=== PATIENT | male | born 1945 | race Caucasian/White ===

== ENCOUNTER 2023-03-24 00:45 | Inpatient (IN) | payer BC, MEDICARE ==
[2023-03-24 03:10] VITALS: BMI 32.2
[2023-03-24] MEDS ORDERED: Acetaminophen 325 MG TAB PO PRN (03:28)
[2023-03-24] MEDS ORDERED: Nitroglycerin 0.4 MG TAB (25 Tab Bottle) SL PRN (03:30)
[2023-03-24 03:53] LABS: #Eosinphils 0.1 thou/uL (0.0-0.7); #Neutrophils 6.2 thou/uL (1.40-6.50); %Basophils 0.4 % (0.0-1.0); %Eosinophils 0.7 % (0.0-10.0); %Lymphocytes 14.7 % (21.0-51.0); %Monocytes 11.2 % (0.0-10.0); %Neutrophils 72.6 % (42.0-75.0); Hematocrit 36.6 % (42.0-52.0); Mean Corpuscular HGB CONC 32.8 g/dL (32.0-36.0); Mean Corpuscular Hemoglobin 32.7 pg (27.0-31.0); Mean Corpuscular Volume 99.7 fl (78.0-98.0); Mean Platelet Volume 10.2 fL (7.4-10.4); Platelet Count 161 10x3/uL (130-400); RBC Distribution Width 13.4 % (11.5-14.5); Red Blood Cell (RBC) Count 3.67 mill/uL (4.70-6.10); White Blood Cell (WBC) Count 8.5 10x3/uL (4.8-10.8)
[2023-03-24 04:05] LABS: Lactic Acid 1.3 mmol/L (0.5-2.2)
[2023-03-24 04:11] LABS: ALT (SGPT) 21 U/L (8-55); AST (SGOT) 29 U/L (5-34); Albumin 3.8 g/dL (3.4-4.8); Alkaline Phosphatase 65 U/L (40-110); Anion Gap 12 mmol/L (10-20); BUN (Urea Nitrogen) 17 mg/dL (8.4-25.7); Bilirubin, Total 1.1 mg/dL (0.2-1.2); Calc. Creatinine Clearance 97 mL/min (70-130); Calcium 8.5 mg/dL (7.8-10.44); Carbon Dioxide 20 mmol/L (23-31); Chloride 109 mmol/L (98-107); Estimated GFR 78; Globulin 2.2 g/dL (2.4-3.5); Glucose 92 mg/dL (83-110); Phosphorus 3.4 mg/dL (2.3-4.7); Potassium 4.1 mmol/L (3.5-5.1); Sodium 137 mmol/L (136-145)
[2023-03-24 04:16] LABS: Troponin I 1.416 ng/mL (< 0.028)
[2023-03-24] MEDS ORDERED: Heparin 10,000 UNITS/ 10 ML VIAL SLOW IVP SCH ×2 (04:30→07:00)
[2023-03-24] MEDS ORDERED: Heparin 25,000 units/D5W 500 ML IV SCH ×2 (04:30→07:00)
[2023-03-24] MEDS ORDERED: cefTRIAXone\\ROCEPHIN 1 GM in Sodium Chloride 0.9% 100 ML IVPB SCH (06:00)
[2023-03-24] MEDS ORDERED: Doxycycline 100 MG CAP PO SCH ×2 (06:15→21:00)
[2023-03-24] MEDS ORDERED: Enoxaparin 120 MG/0.8 ML SYRINGE SC SCH (09:00)
[2023-03-24] MEDS ORDERED: Lisinopril 2.5 MG TAB PO SCH (09:00)
[2023-03-24] MEDS ORDERED: Metoprolol Tartrate 25 MG TAB PO SCH (09:00)
[2023-03-24] MEDS: Aspirin 81 mg Enteric Coated Tablet PO SCH (10:38)
[2023-03-24] MEDS: Famotidine 20 MG TAB PO SCH ×2 (10:39→21:00)
[2023-03-24] MEDS: Atenolol 25 MG TAB PO SCH (10:39)
[2023-03-24] MEDS: Ramipril 5 MG CAP PO SCH (10:39)
[2023-03-24] MEDS: Ezetimibe 10 MG TAB PO SCH (10:39)
[2023-03-24] MEDS ORDERED: Communication Order-Pharmacy FS SCH (15:30)
[2023-03-24] MEDS: Sodium Chloride 0.9% 1,000 ML IV SCH (16:20)
[2023-03-24] MEDS ORDERED: Ezetimibe 10 MG TAB PO SCH (21:00)
[2023-03-24] MEDS ORDERED: Atorvastatin Calcium 20 MG TAB PO SCH ×2 (21:00)
[2023-03-24] MEDS ORDERED: Simvastatin 40 MG TAB PO SCH (21:00)
[2023-03-24 22:45] LABS: PTT 146.4 sec (22.9-36.1)
[2023-03-25 04:54] LABS: Cardiac Risk 2.8 (Less than 4.5)
[2023-03-25] MEDS: Sodium Chloride 0.9% 1,000 ML IV SCH (05:19)
[2023-03-25] MEDS ORDERED: Amiodarone 450 MG, Admixture Fee 1 EACH in Dextrose 5% in Water 250 ML IVPB SCH (07:00)
[2023-03-25] MEDS ORDERED: Amiodarone 150 MG, Admixture Fee 1 EACH in Dextrose 5% in Water 100 ML IVPB SCH (07:00)
[2023-03-25 07:36] LABS: ALT (SGPT) 17 U/L (8-55); AST (SGOT) 26 U/L (5-34); Albumin 3.6 g/dL (3.4-4.8); Alkaline Phosphatase 57 U/L (40-110); Bilirubin, Direct 0.6 mg/dL (0.1-0.3); Bilirubin, Total 1.4 mg/dL (0.2-1.2); Protein, Total 5.7 g/dL (5.8-8.1)
[2023-03-25] MEDS: Ramipril 5 MG CAP PO SCH (08:43)
[2023-03-25] MEDS: Aspirin 81 mg Enteric Coated Tablet PO SCH (08:44)
[2023-03-25] MEDS: Atenolol 25 MG TAB PO SCH (08:44)
[2023-03-25] MEDS: Famotidine 20 MG TAB PO SCH (08:44)
[2023-03-25] MEDS: Ezetimibe 10 MG TAB PO SCH (08:45)
[2023-03-25] MEDS ORDERED: Iopamidol 370 76% 100 ML VIAL ONE (09:12)
[2023-03-25] MEDS ORDERED: cefTRIAXone\\ROCEPHIN 1 GM in Sodium Chloride 0.9% 100 ML IVPB SCH (11:00)
[2023-03-25] MEDS ORDERED: Doxycycline 100 MG in Sodium Chloride 0.9% 100 ML IVPB SCH ×2 (11:15→21:00)
[2023-03-25] MEDS ORDERED: Heparin 10,000 UNITS/ 10 ML VIAL ONE ×2 (12:54→20:15)
[2023-03-25] MEDS ORDERED: Nitroglycerin 50 MG/250 ML BOT 0 ML ONE ×2 (12:54→20:15)
[2023-03-25 12:59] LABS: #Basophils 0.1 thou/uL (0.0-0.2); #Eosinphils 0.1 thou/uL (0.0-0.7); #Monocytes 1.3 thou/uL (0.11-0.59); #Neutrophils 6.7 thou/uL (1.40-6.50); %Basophils 0.5 % (0.0-1.0); %Eosinophils 1.2 % (0.0-10.0); %Lymphocytes 11.7 % (21.0-51.0); %Monocytes 14.4 % (0.0-10.0); %Neutrophils 71.9 % (42.0-75.0); Hematocrit 33.9 % (42.0-52.0); Mean Corpuscular HGB CONC 32.4 g/dL (32.0-36.0); Mean Corpuscular Volume 101.8 fl (78.0-98.0); Mean Platelet Volume 10.9 fL (7.4-10.4); Platelet Count 131 10x3/uL (130-400); RBC Distribution Width 13.6 % (11.5-14.5); Red Blood Cell (RBC) Count 3.33 mill/uL (4.70-6.10); White Blood Cell (WBC) Count 9.3 10x3/uL (4.8-10.8)
[2023-03-25] MEDS ORDERED: fentaNYL 50 mcg/mL 1 mL Vial ONE ×2 (13:34→20:24)
[2023-03-25] MEDS ORDERED: Midazolam HCl 2 mg/2 ml Vial ONE ×2 (13:35→20:24)
[2023-03-25] MEDS ORDERED: Sodium Chloride 0.9% 200 ML IV PRN (14:23)
[2023-03-25] MEDS ORDERED: Sodium Chloride 0.9% 250 ML IV SCH (14:30)
[2023-03-25 17:01] VITALS: BP 117/67; TEMP 97.3
[2023-03-25] MEDS ORDERED: Propofol 1,000 MG/100 ML VIAL IV ONE (19:37)
[2023-03-25] MEDS ORDERED: NOREPINEPHRINE 8 MG/250 ML-D5W 250 ML ONE (19:41)
[2023-03-25] MEDS ORDERED: Atropine Sulfate 1 mg/10 ml Syringe ONE (19:42)
[2023-03-25] MEDS ORDERED: Amiodarone 450 MG in Dextrose 5% in Water 250 ML IVPB SCH (19:45)
[2023-03-25] MEDS ORDERED: Sodium Bicarb 50 MEQ/50 ML Abboject 8.4% SYRINGE ONE (19:57)
[2023-03-25] MEDS ORDERED: Calcium Chloride 1 GM/10 ML Abboject SYRINGE ONE (19:57)
[2023-03-25] MEDS ORDERED: EPINEPHrine 1 MG/10 ML Abboject SYRINGE ONE ×2 (19:57→20:11)
[2023-03-25] MEDS ORDERED: Magnesium 5 GM/10 ML Abboject SYRINGE ONE (19:57)
[2023-03-25 19:58] LABS: Base Excess (BEa) -16.3 mEq/L (-2.0 to +3.0); Calcium, Ionized (arterial) 1.21 mmol/L (1.12-1.30); Carboxyhemoglobin (COHb) 0.5 gm% (0.0-3.0); Hematocrit-ABG 37 % (42.0-52.0); Hemoglobin (Hb) 12.5 g/dL (14.0-18.0); O2 Tension (PaO2), arterial 89.8 mmHg (> 70.0); Potassium - ABG Lab 5.48 mmol/L (3.70-5.30)
[2023-03-25 20:03] LABS: Puncture Site LBA
[2023-03-25] MEDS ORDERED: EPINEPHrine 4 MG in Dextrose 5% in Water 250 ML IVP SCH (20:15)
[2023-03-25] MEDS ORDERED: NOREPINEPHRINE 8 MG/250 ML-D5W 250 ML IVPB SCH (20:45)
[2023-03-25 21:07] LABS: #Basophils 0.1 thou/uL (0.0-0.2); #Eosinphils 0.1 thou/uL (0.0-0.7); #Monocytes 1.2 thou/uL (0.11-0.59); #Neutrophils 6.5 thou/uL (1.40-6.50); %Basophils 0.6 % (0.0-1.0); %Eosinophils 1.2 % (0.0-10.0); %Lymphocytes 30.1 % (21.0-51.0); %Monocytes 10.8 % (0.0-10.0); Hematocrit 35.7 % (42.0-52.0); Hemoglobin 11.4 g/dL (14.0-18.0); Mean Corpuscular HGB CONC 31.9 g/dL (32.0-36.0); Mean Corpuscular Hemoglobin 33.1 pg (27.0-31.0); Mean Corpuscular Volume 103.8 fl (78.0-98.0); Mean Platelet Volume 11.2 fL (7.4-10.4); Platelet Count 153 10x3/uL (130-400); RBC Distribution Width 13.7 % (11.5-14.5); Red Blood Cell (RBC) Count 3.44 mill/uL (4.70-6.10); White Blood Cell (WBC) Count 11.5 10x3/uL (4.8-10.8)
[2023-03-25] MEDS ORDERED: Sodium Bicarbonate 150 MEQ in Dextrose 5% in Water 1,000 ML IV SCH (21:30)
[2023-03-25 22:37] LABS: ALT (SGPT) 19 U/L (8-55); AST (SGOT) 31 U/L (5-34); Albumin 3.7 g/dL (3.4-4.8); Alkaline Phosphatase 56 U/L (40-110); Anion Gap 17 mmol/L (10-20); BUN (Urea Nitrogen) 23 mg/dL (8.4-25.7); Bilirubin, Total 1.3 mg/dL (0.2-1.2); Calc. Creatinine Clearance 77 mL/min (70-130); Calcium 8.6 mg/dL (7.8-10.44); Carbon Dioxide 15 mmol/L (23-31); Chloride 109 mmol/L (98-107); Estimated GFR 59; Globulin 2.4 g/dL (2.4-3.5); Glucose 115 mg/dL (83-110); Magnesium 2.3 mg/dL (1.6-2.6); Phosphorus 4.3 mg/dL (2.3-4.7); Protein, Total 6.1 g/dL (5.8-8.1); Sodium 137 mmol/L (136-145)
[2023-03-25] MEDS ORDERED: DOBUTamine 500 mg/250 ml 250 ML ONE (22:41)
[2023-03-25 23:06] LABS: Critical Call Chem-Lactate MDELOSO500@2306; Lactic Acid 11.6 mmol/L (0.5-2.2)
[2023-03-27 14:00] LABS: Actual Bicarbonate (HCO3a) 10.8 mEq/L (22-28); pH, Arterial 7.175 (7.35-7.45)
== END 2023-03-25 22:56 | disposition expired | DRG 215 ==
LOC: 2NO 02:52 → OBSVTOIN 17:31 → CCU 03-25 19:30
PROVIDERS: ADMIT Internal Medicine; ATTEND Internal Medicine
PROC: 2W3RX1Z Immobilization of Left Lower Leg using Splint (ICD-10-PCS; principal; 2023-03-24)
PROC: 02HA3RZ Insertion of Short-term External Heart Assist System into Heart, Percutaneous Approach (ICD-10-PCS; 2023-03-25)
PROC: 5A0221D Assistance with Cardiac Output using Impeller Pump, Continuous (ICD-10-PCS; 2023-03-25)
PROC: 4A023N7 Measurement of Cardiac Sampling and Pressure, Left Heart, Percutaneous Approach (ICD-10-PCS; 2023-03-25)
PROC: B2111ZZ Fluoroscopy of Multiple Coronary Arteries using Low Osmolar Contrast (ICD-10-PCS; 2023-03-25)
PROC: B2151ZZ Fluoroscopy of Left Heart using Low Osmolar Contrast (ICD-10-PCS; 2023-03-25)
PROC: 5A12012 Performance of Cardiac Output, Single, Manual (ICD-10-PCS; 2023-03-25)
PROC: 4A133R1 Monitoring of Arterial Saturation, Peripheral, Percutaneous Approach (ICD-10-PCS; 2023-03-25)
PROC: 3E033XZ Introduction of Vasopressor into Peripheral Vein, Percutaneous Approach (ICD-10-PCS; 2023-03-25)
PROC: 0BH17EZ Insertion of Endotracheal Airway into Trachea, Via Natural or Artificial Opening (ICD-10-PCS; 2023-03-25)
PROC: 5A1935Z Respiratory Ventilation, Less than 24 Consecutive Hours (ICD-10-PCS; 2023-03-25)
PROC: 5A1223Z Performance of Cardiac Pacing, Continuous (ICD-10-PCS; 2023-03-25)
DX: I21.4 Non-ST elevation (NSTEMI) myocardial infarction (principal); J96.01 Acute respiratory failure with hypoxia; E87.20 Acidosis, unspecified; J98.11 Atelectasis; Z51.5 Encounter for palliative care; I10 Essential (primary) hypertension; E78.5 Hyperlipidemia, unspecified; S82.832A Other fracture of upper and lower end of left fibula, initial encounter for closed fracture; I46.2 Cardiac arrest due to underlying cardiac condition; R00.1 Bradycardia, unspecified; R57.0 Cardiogenic shock; I25.10 Atherosclerotic heart disease of native coronary artery without angina pectoris; Z79.899 Other long term (current) drug therapy; W19.XXXA Unspecified fall, initial encounter
CPT/HCPCS: 33210; 33990; 36415; 36416; 36600; 71045; 71250; 80053; 80061; 80076; 82805; 83605; 83735; 84100; 84145; 84443; 84484; 85025; 85347; 85379; 85730; 87635; 87804; 93005; 93010; 93306; 93458; 94002; 99152; C1769; J0171; J0282; J0696; J1644; J2250; J3010; J3475; J3490; J7050; J7070